=== PATIENT | male | born 1985 | race Hispanic/Latino ===

== ENCOUNTER 2024-05-06 07:56 | Day surgery (SDC) | payer OTHER ==
[2024-04-30 16:03] LABS: Absolute Basophils 0.1 K/uL (0-0.5); Absolute Eosinophils 0.2 K/uL (0-0.5); Absolute Lymphocytes (CBC) 1.8 K/uL (0.7-4.9); Absolute Monocytes 0.7 K/uL (0.1-1.3); Absolute Neutrophil 5.9 K/uL (1.8-8.0); Basophils % 0.7 % (0-1.3); Hematocrit 42.7 % (39.6-49.0); Hemoglobin 14.1 g/dL (13.6-17.9); Lymphocytes % 21.1 % (15.3-44.8); MCH 28.3 pg (27.0-35.0); MCV 85.9 fL (80-100); MPV 8.6 fL (7.6-11.3); Monocytes % 8.4 % (3.3-12.3); Neutrophils % 67.8 % (41.7-73.7); Platelets 286 thou/uL (152-406); RBC Red Blood Cell Count 4.97 M/uL (4.33-5.43); Red Cell Distribution Width 13.5 % (12.1-15.2)
[2024-05-06] MEDS ORDERED: LIDOCAINE 1% MPF 5 ML VIAL ONE (08:26)
[2024-05-06] MEDS ORDERED: MIDAZOLAM HCL 2 MG/2 ML INJ ONE (08:26)
[2024-05-06] MEDS ORDERED: ROCURONIUM 50 MG/5 ML VIAL IV ONE (08:26)
[2024-05-06] MEDS ORDERED: propofoL 200 MG/20 ML VIAL IV ONE (08:26)
[2024-05-06] MEDS ORDERED: ONDANSETRON 4 MG/2 ML VIAL ONE (08:26)
[2024-05-06] MEDS ORDERED: FENTANYL CITR 100 MCG/2 ML ONE ×2 (08:26→09:46)
[2024-05-06] MEDS: Ringers Lactate 1,000 ML IV ONE (09:00)
[2024-05-06] MEDS: CEFAZOLIN SODIUM 2 GM/VIAL ONE (09:24)
[2024-05-06] MEDS: BUPIVACAINE 0.5% PF 10 ML VIAL ONE (09:31)
[2024-05-06] MEDS ORDERED: dexAMETHasone 10 MG/ML VIAL ONE (09:45)
[2024-05-06] MEDS ORDERED: KETOROLAC 30 MG/ML INJ ONE (09:45)
[2024-05-06] MEDS ORDERED: MEPERIDINE HCL 25 MG/ML SYR ONE (09:46)
[2024-05-06] MEDS ORDERED: Ringers Lactate 1,000 ML IV ONE (10:25)
--- NOTE | 2024-05-06 10:43 | P.OP ---
Date of Service: 05/06/24 Preop diagnosis: Incarcerated umbilical hernia Postop diagnosis: Same Procedure performed: Laparoscopic assisted repair of incarcerated umbilical hernia Surgeon: Teofilo Hardwick MD Civil Rights Investigator: Adeline RODRIGUEZ Estimated blood loss: Minimal Specimen: Hernia sac and contentsomentum Findings: As above Anesthesia: General Complications: None Drains: None Fluids and blood products: Nonapplicable Disposition: Recovery room Operative note: Patient brought to the OR and placed in supine position. General anesthesia began. Patient prepped and draped in usual sterile fashion. Marcaine 0.5% infiltrated locally. 15 blade used to make a 1 cm left upper quadrant incision. Subcutaneous tissue divided and bleeding controlled cautery. Fascia identified and divided. #1 Vicryl stay suture placed. Peritoneal cavity entered with sharp and blunt dissection. 12 mm trocar placed into the peritoneal cavity under direct vision. Pneumoperitoneum established. 5 mm trocar placed in the left lower quadrant under direct vision. Laparoscopy revealed incarcerated omentum at the umbilicus. It was very difficult to reduce the omentum into the peritoneal cavity. Therefore, LigaSure was used to divide the omentum. Then a 4 cm curvilinear incision was made below the umbilicus. Subcutaneous tissue divided and bleeding controlled with cautery. Hernia sac and contents and identified. This was dissected free from the surrounding tissue and good fascial edges were obtained. Hernia sac and contents were excised and sent to pathology as specimen. Small opening was present for the hernia defect. A Ventralex mesh, small in size, was placed in the peritoneal cavity under direct vision. #1 PDS ecptao-go-oedwy suture was used to secure the mesh to the fascia and close the fascial defect. Pneumoperitoneum was reestablished. Complete coverage of the defect was accomplished with at least 3 cm borders on all sides. There was no evidence of bleeding or bowel injury appreciated. All trocars were removed under direct vision. Stay sutures were tied to each other to close the fascial defect. 3-0 chromic was used to close the subcutaneous tissue and skin. Sterile dressing was applied. Patient was awakened and taken to recovery room in good general condition. CC: Dr. Papa Field's office
[2024-05-06] MEDS: HYDROMORPHONE HCL 1 MG/ML INJ ONE (11:03)
[2024-05-06 11:20] VITALS: TEMP 97.3; O2SAT 100
[2024-05-06] MEDS ORDERED: HYDROCODONE/APAP 7.5/325 MG TAB ONE (11:29)
[2024-05-06] MEDS: HYDROCODONE/APAP 7.5/325 MG TAB PO PRN (11:32)
[2024-05-06 12:31] VITALS: BP 113/73
== END 2024-05-06 12:15 | disposition home or self-care (01) ==
LOC: OR 07:56
PROVIDERS: ATTEND Surgery
PROC: 0WQF4ZZ Repair Abdominal Wall, Percutaneous Endoscopic Approach (ICD-10-PCS; principal; 2024-05-06 09:15)
DX: K42.0 Umbilical hernia with obstruction, without gangrene (principal)
CPT/HCPCS: 85025; 36415; 88302; 49594; J2704; J2003; J2250; J3010 ×2; J1100; J2175; J1171; J2405; J7120 ×2; A4314